=== PATIENT | male | born 2000 | race Hispanic/Latino ===

== ENCOUNTER 2025-05-29 09:09 | Emergency (ER) | payer SELFPAY ==
[2025-05-29 10:16] LABS: #Basophils 0.04 10x3/uL (0.0-0.2); #Eosinophils 0.27 10x3/uL (0.0-0.7); #Monocytes 0.56 10x3/uL (0.11-0.59); #Neutrophils 4.39 10x3/uL (1.40-6.50); %Basophils 0.5 % (0.0-1.0); %Eosinophils 3.5 % (0.0-10.0); %Lymphocytes 30.9 % (21.0-51.0); %Monocytes 7.3 % (0.0-10.0); %Neutrophils 57.4 % (42.0-75.0); Hematocrit 48.6 % (42.0-52.0); Hemoglobin 15.9 g/dL (14.0-18.0); Mean Corpuscular Hemoglobin 27.9 pg (27.0-31.0); Mean Corpuscular Volume 85.4 fL (78.0-98.0); Platelet Count 288 10x3/uL (130-400); Red Blood Cell (RBC) Count 5.69 mill/uL (4.70-6.10); White Blood Cell (WBC) Count 7.66 10x3/uL (4.8-10.8)
[2025-05-29 10:34] LABS: ALT (SGPT) 64 U/L (Less than 45); AST (SGOT) 40 U/L (11-34); Albumin 4.5 g/dL (3.1-4.5); Alkaline Phosphatase 104 U/L (40-110); Anion Gap 13 mmol/L (10-20); BUN (Urea Nitrogen) 13 mg/dL (8.9-20.6); Bilirubin, Total 0.6 mg/dL (0.3-1.2); Calc. Creatinine Clearance 0 mL/min (70-130); Calcium 9.6 mg/dL (7.8-10.44); Carbon Dioxide 26 mmol/L (22-29); Chloride 104 mmol/L (98-107); Globulin 3.3 g/dL (2.4-3.5); Glucose 96 mg/dL (70-105); Lipase 18 U/L (8-78); Potassium 4.7 mmol/L (3.5-5.1); Sodium 138 mmol/L (136-145)
[2025-05-29 10:59] LABS: Bacteria/HPF None Seen HPF (None Seen); CAUTI Indications for Culture Pelvic or flank pain; Glucose, Urine (Dipstick) Normal (Negative); Leukocyte Negative Leu/uL (Negative); Protein, Urine (Dipstick) Negative (Neg-Trace); RBC/HPF 0-3 HPF (0-3); Specific Gravity, Urine 1.029 (1.002-1.036); WBC/HPF 0-3 HPF (0-3)
[2025-05-29 11:01] LABS: Urine Culture Reflex No No
[2025-05-29] MEDS ORDERED: Iopamidol-370 76% 500 ML MDV (1 ML CHARGE) ONE (14:32)
== END 2025-05-29 13:10 | disposition home or self-care (01) ==
LOC: ERS 09:09
DX: K42.9 Umbilical hernia without obstruction or gangrene (principal); I10 Essential (primary) hypertension; F17.210 Nicotine dependence, cigarettes, uncomplicated; Z75.8 Other problems related to medical facilities and other health care; Z75.9 Unspecified problem related to medical facilities and other health care
CPT/HCPCS: 36415; 74177; 80053; 81001; 83605; 83690; 85025; Q9967